=== PATIENT | female | born 1930 | race African-American/Black ===

== ENCOUNTER 2021-03-28 09:32 | Inpatient (IN) | payer OTHER ==
[~2021-03-28] VITALS: Ht 157.5 cm; Wt 47.6 kg
[2021-03-28 10:23] LABS: BASOPHILS % 0.6 % (0.0-2.0); EOSINOPHILS % 1.1 % (0.0-5.0); HEMATOCRIT. 37.7 % (36.0-48.0); LYMPHOCYTES % 18.7 % (20.0-50.0); MEAN CORPUSCULAR HEMOGLOBIN 28.4 pg (28.0-32.0); MEAN CORPUSCULAR VOLUME 89.2 fL (81.0-99.0); MEAN PLATELET VOLUME 11.1 fl (7.4-10.4); MONOCYTES % 6.3 % (2.0-8.0); NEUTROPHILS % 73.3 % (40.0-76.0); PLATELET 96 x1000/uL (130-400); RED BLOOD CELL COUNT 4.23 mill/uL (4.2-5.4); RED CELL DISTRIBUTION WIDTH 22.7 % (11.6-14.6)
[2021-03-28 10:25] LABS: CHLORIDE 103 mEq/L (98-107)
[2021-03-28] MEDS ORDERED: SODIUM CHLORIDE 0.9% 1,000 ML IV ONE (10:30)
[2021-03-28 10:53] LABS: PLATELET ESTIMATE DECREASED
[2021-03-28] MEDS ORDERED: ASPIRIN 325MG EC TABLET PO ONE (11:15)
[2021-03-28] MEDS ORDERED: SODIUM CHLORIDE 0.9% 500 ML IV ONE (11:15)
[2021-03-28] MEDS ORDERED: CLONIDINE 0.1MG TABLET PO PRN (13:45)
[2021-03-28] MEDS ORDERED: ONDANSETRON HCL 4MG/2ML INJ IV PRN (13:45)
[2021-03-28] MEDS ORDERED: MAGNESIUM/ALUMINUM HYDROXIDE/SIMETHICONE 30ML UDC PO PRN (13:45)
[2021-03-28] MEDS ORDERED: ACETAMINOPHEN 325MG TABLET PO PRN (13:45)
[2021-03-28] MEDS ORDERED: ENOXAPARIN 40MG/0.4ML SYR SUBCUT SCH (13:45)
[2021-03-28] MEDS ORDERED: DIPHENHYDRAMINE 50MG/ML VIAL IV PRN (13:45)
[2021-03-28] MEDS: AMLODIPINE 10MG TABLET PO SCH (16:35)
[2021-03-28] MEDS ORDERED: HYDRALAZINE 20MG/ML VIAL IV PRN (17:30)
[2021-03-28] MEDS ORDERED: METOPROLOL TARTRATE 50MG TABLET PO NR (17:30)
[2021-03-28 22:50] VITALS: BP 109/82
[2021-03-29] MEDS ORDERED: MIRT-118 MT (01:44)
[2021-03-29] MEDS ORDERED: AMIO100T4 MT (01:44)
[2021-03-29] MEDS ORDERED: OMEP20TA15 MT (01:44)
[2021-03-29] MEDS ORDERED: ALBU4TAB6 MT (01:44)
[2021-03-29] MEDS ORDERED: ATOR10TA MT (01:44)
[2021-03-29] MEDS ORDERED: APIX2.5T MT (01:44)
[2021-03-29] MEDS ORDERED: DEXTROSE 50% WATER 50ML SYRINGE IV PRN (02:00)
[2021-03-29 04:00] VITALS: BP 124/67
[2021-03-29 06:36] LABS: BASOPHILS % 0.7 % (0.0-2.0); EOSINOPHILS % 1.1 % (0.0-5.0); HEMOGLOBIN. 11.7 g/dL (12.0-16.0); MEAN CORPUSCULAR HEMOGLOBIN 29.2 pg (28.0-32.0); MEAN CORPUSCULAR VOLUME 87.5 fL (81.0-99.0); MONOCYTES % 7.5 % (2.0-8.0); NEUTROPHILS % 74.7 % (40.0-76.0); RED CELL DISTRIBUTION WIDTH 23.2 % (11.6-14.6)
[2021-03-29] MEDS: BLOOD SUGAR DIAGNOSTIC STRIP TEST SCH ×4 (06:43→21:02)
[2021-03-29] MEDS: INSULIN LISPRO 100 UNITS/ML SUBCUT SCH ×4 (06:43→21:00)
[2021-03-29 08:00] VITALS: BP 131/106
[2021-03-29] MEDS ORDERED: LIDOCAINE HCL 1% 20ML VIAL (Pyxis) INJ ONE (08:17)
[2021-03-29 09:02] LABS: CHLORIDE 104 mEq/L (98-107)
[2021-03-29 09:17] LABS: HDL CHOLESTEROL 75 mg/dL (40-59); LDL CHOLESTEROL 35 mg/dL (5-100)
[2021-03-29] MEDS: AMLODIPINE 10MG TABLET PO SCH (10:16)
[2021-03-29 12:00] VITALS: BP 90/58
[2021-03-29 13:29] LABS: HEPATITIS B SURFACE ANTIGEN NEGATIVE
[2021-03-29 14:03] LABS: MEAN PLATELET VOLUME 10.9 fl (7.4-10.4)
[2021-03-29 14:04] LABS: PLATELET 85 x1000/uL (130-400)
[2021-03-29 16:00] VITALS: BP 150/87
[2021-03-29 20:00] VITALS: BP 118/99
[2021-03-29 21:44] LABS: INR 1.3; PARTIAL THROMBOPLASTIN TIME 35.3 sec (23.4-31.0); PROTHROMBIN TIME 13.3 sec (9.6-11.0)
[2021-03-30] VITALS (23 sets, daily range): BP systolic 84–122; BP diastolic 56–82
[2021-03-30] MEDS: INSULIN LISPRO 100 UNITS/ML SUBCUT SCH ×4 (06:22→21:00)
[2021-03-30] MEDS: BLOOD SUGAR DIAGNOSTIC STRIP TEST SCH ×4 (06:22→21:57)
[2021-03-30] MEDS: CARVEDILOL 3.125 MG TABLET PO SCH ×2 (09:00→21:00)
[2021-03-30] MEDS: AMLODIPINE 10MG TABLET PO SCH (09:00)
[2021-03-30] MEDS ORDERED: ENOXAPARIN 30MG/0.3ML SYR SUBCUT SCH (09:00)
[2021-03-30] MEDS ORDERED: CEFAZOLIN 1000MG PREMIX 50 ML IV NR (09:00)
[2021-03-30] MEDS ORDERED: CEFAZOLIN 1000MG PREMIX 50 ML IV ONE (09:18)
[2021-03-30] MEDS ORDERED: IOHEXOL-300 100 ML BOTTLE ONE (09:19)
[2021-03-30] MEDS ORDERED: FENTANYL CITRATE/PF 50MCG/ML 2ML VIAL ONE (09:19)
[2021-03-30] MEDS ORDERED: HEPARIN 1000 UNITS/ML 10ML ONE (09:19)
[2021-03-30] MEDS ORDERED: HEPARIN 1,000 UNITS PREMIX 0 ML IV ONE (09:19)
[2021-03-30] MEDS ORDERED: ALTEPLASE 2MG/VIAL ITC NR (10:00)
[2021-03-30] MEDS ORDERED: FENTANYL CITRATE/PF 50MCG/ML 2ML VIAL IV NR (11:30)
[2021-03-30] MEDS: MIDODRINE HCL 5MG TABLET PO SCH (22:04)
[2021-03-31] VITALS: BP 90/58
[2021-03-31 04:00] VITALS: BP 89/48
[2021-03-31 06:26] LABS: HEMATOCRIT. 36.6 % (36.0-48.0); HEMOGLOBIN. 11.9 g/dL (12.0-16.0); MEAN CORPUSCULAR HEMOGLOBIN 28.9 pg (28.0-32.0); MEAN CORPUSCULAR VOLUME 88.9 fL (81.0-99.0); RED BLOOD CELL COUNT 4.11 mill/uL (4.2-5.4); RED CELL DISTRIBUTION WIDTH 23.1 % (11.6-14.6)
[2021-03-31] MEDS: BLOOD SUGAR DIAGNOSTIC STRIP TEST SCH ×4 (06:45→20:25)
[2021-03-31] MEDS: INSULIN LISPRO 100 UNITS/ML SUBCUT SCH ×4 (07:15→20:43)
[2021-03-31 08:00] VITALS: BP 90/55
[2021-03-31] MEDS: CARVEDILOL 3.125 MG TABLET PO SCH ×2 (09:00→20:25)
[2021-03-31] MEDS: MIDODRINE HCL 5MG TABLET PO SCH ×3 (09:43→17:29)
[2021-03-31] MEDS ORDERED: SODIUM POLYSTYRENE SULFONATE 15 G/60 ML BOT PO NR (11:00)
[2021-03-31 12:00] VITALS: BP 91/62
[2021-03-31 13:47] LABS: PLATELET ESTIMATE DECREASED
[2021-03-31 14:22] LABS: MEAN PLATELET VOLUME 11.1 fl (7.4-10.4); PLATELET 80 x1000/uL (130-400)
[2021-03-31 16:00] VITALS: BP 91/60
[2021-03-31 21:40] VITALS: BP 96/70
== END 2021-03-31 22:41 | disposition short-term general hospital (02) | DRG 252 ==
LOC: ER 09:56 → 5WST 11:48 → EDBEDREQ 11:53 → EDBEDREQTM 11:53 → ENRESERV 20:51 → 5WST 03-29 00:08
PROVIDERS: ADMIT Hospitalist; ATTEND Hospitalist
PROC: 02HV33Z Insertion of Infusion Device into Superior Vena Cava, Percutaneous Approach (ICD-10-PCS; 2021-03-29)
PROC: B548ZZA Ultrasonography of Superior Vena Cava, Guidance (ICD-10-PCS; 2021-03-29)
PROC: B518ZZA Fluoroscopy of Superior Vena Cava, Guidance (ICD-10-PCS; 2021-03-29)
PROC: 5A1D70Z Performance of Urinary Filtration, Intermittent, Less than 6 Hours Per Day (ICD-10-PCS; principal; 2021-03-30)
PROC: 06W Lower Veins, Revision (ICD-10-PCS; 2021-03-30)
PROC: 04WY3JZ Revision of Synthetic Substitute in Lower Artery, Percutaneous Approach (ICD-10-PCS; 2021-03-30)
PROC: B5191ZA Fluoroscopy of Inferior Vena Cava using Low Osmolar Contrast, Guidance (ICD-10-PCS; 2021-03-30)
PROC: B51W1ZZ Fluoroscopy of Dialysis Shunt/Fistula using Low Osmolar Contrast (ICD-10-PCS; 2021-03-30)
PROC: 3E04317 Introduction of Other Thrombolytic into Central Vein, Percutaneous Approach (ICD-10-PCS; 2021-03-30)
DX: I95.3 Hypotension of hemodialysis (principal); E43 Unspecified severe protein-calorie malnutrition; I50.43 Acute on chronic combined systolic (congestive) and diastolic (congestive) heart failure; N18.6 End stage renal disease; I13.2 Hypertensive heart and chronic kidney disease with heart failure and with stage 5 chronic kidney disease, or end stage renal disease; Z68.1 Body mass index [BMI] 19.9 or less, adult; T82.868A Thrombosis due to vascular prosthetic devices, implants and grafts, initial encounter; B19.20 Unspecified viral hepatitis C without hepatic coma; D64.9 Anemia, unspecified; R79.89 Other specified abnormal findings of blood chemistry; Y83.2 Surgical operation with anastomosis, bypass or graft as the cause of abnormal reaction of the patient, or of later complication, without mention of misadventure at the time of the procedure; Z20.822 Contact with and (suspected) exposure to COVID-19; E11.22 Type 2 diabetes mellitus with diabetic chronic kidney disease; F03.90 Unspecified dementia, unspecified severity, without behavioral disturbance, psychotic disturbance, mood disturbance, and anxiety; Z99.2 Dependence on renal dialysis; Z88.8 Allergy status to other drugs, medicaments and biological substances; Y92.89 Other specified places as the place of occurrence of the external cause
CPT/HCPCS: 36415; 36573; 36905; 71045; 76937; 80048; 80053; 80061; 82962; 83036; 83880; 84132; 84484; 85025; 86705; 86709; 86803; 87340; 87426; 93005; 93306; 93970; 99152; 99153; 99291; C1725; C1766; C1769; C1887; J0690; J1644; J1650; J1815; J2997; J3010; J3490; J7040; Q9967; A4315; G0500